=== PATIENT | male | born 1950 | race Caucasian/White ===

== ENCOUNTER → 2016-08-29 | Outpatient (CLI) | payer MEDICARE, OTHER | LOC: KOH-I 15:45 | DX: M54.5 Low back pain (principal); M25.551 Pain in right hip; M41.86 Other forms of scoliosis, lumbar region; N20.0 Calculus of kidney | CPT/HCPCS: 72110; 73502 ==

== ENCOUNTER 2020-08-27 17:13 | Emergency (ER) | payer MEDICARE, OTHER ==
[~2020-08-27 17:13] MED LIST: PEPCID40 MG PO; PREDNISONE20 MG PO; ROBAXIN 750 MG750 MG PO; ZYRTEC10 MG PO
[2020-08-27 20:38] LABS: HEMOGLOBIN 14.5 gm/dl (14.0-17.5); RED BLOOD COUNT 4.56 M/UL (4.20-5.50)
[2020-08-27 20:58] LABS: BUN/CREATININE RATIO 38 (0-10)
[2020-08-27] MEDS ORDERED: CYCLOBENZAPRINE10 MG PO (22:34)
== END 2020-08-27 22:38 | disposition home or self-care (01) ==
LOC: ER1 17:13
PROVIDERS: Family Medicine
DX: S39.012A Strain of muscle, fascia and tendon of lower back, initial encounter (principal); N20.0 Calculus of kidney; I10 Essential (primary) hypertension; Z79.899 Other long term (current) drug therapy; W22.8XXA Striking against or struck by other objects, initial encounter
CPT/HCPCS: 80053; 81001; 83690; 85025; 99284